=== PATIENT | male | born 1965 | race Caucasian/White ===

== ENCOUNTER 2016-12-22 20:49 | Emergency (ER) | payer OTHER ==
[2016-12-22 21:13] VITALS: BP 128/72
--- NOTE | 2016-12-22 22:25 | EDM.PDOC ---
ED HPI GENERAL MEDICAL PROBLEM - General Chief Complaint: Upper Extremity Injury/Pain Stated Complaint: R HAND INJURY Time Seen by Provider: 12/22/16 21:30 Source of Information: Reports: Patient History Limitations: Reports: No Limitations - History of Present Illness INITIAL COMMENTS - FREE TEXT/NARRATIVE: Ananda is an otherwise healthy 51 year old male who presents to the ED tonight with c/o right third and fourth digit swelling and pain after he was struck by trailer handle. Patient was winding up trailer for his boat when it came loose and spun back striking patient's right hand. Patient denies any other injuries. He did sustain two very small abrasions. Last DT was last year. Duration: Hour(s): (1) Right Hand Pain Score (Numeric/FACES): 5 - Related Data Allergies Allergy/AdvReac Type Severity Reaction Status Date / Time No Known Allergies Allergy Verified 01/23/15 14:47 Home Meds: Home Meds Naproxen Sodium [Aleve] 1 tab PO ASDIRECTED 01/23/15 [History] Past Medical History - Infectious Disease History Infectious Disease History: Reports: Chicken Pox - Past Surgical History Musculoskeletal Surgical History: Reports: Arthroscopic Knee, Shoulder Surgery Social & Family History - Tobacco Use Smoking Status *Q: Never Smoker - Caffeine Use Caffeine Use: Reports: None - Recreational Drug Use Recreational Drug Use: No Review of Systems - Review of Systems Review Of Systems: ROS reveals no pertinent complaints other than HPI. Trauma Exam - Physical Exam Exam: See Below Exam Limited By: No Limitations General Appearance: Reports: Alert, WD/WN, No Apparent Distress Head: Reports: Atraumatic Ears: Reports: Normal External Exam Respiratory Exam: Reports: No Respiratory Distress Cardiovascular: Reports: Normal Peripheral Pulses Extremities: Bony-Point Tenderness, Tenderness, Other (Tenderness and swelling with ecchymosis to right third and fourth digits. Ecchymosis starts at distal metacarpal region on plamer side and surrounds fourth digit. No open fracture. Concerns for fourth finger fx. No ligamentous instability, capillary refill and sensation are intact. ) Neurologic: Reports: No Motor/Sensory Deficits Skin: Reports: Ecchymosis Course - Vital Signs Text/Narrative:: Ananda is an otherwise healthy 51 year old male who presents to the ED today with c/o right 3rd and 4th finger pain/swelling after hand was struck by lever of trailer. Patient was winding up boat when lever came loose and struck right hand. Please refer to HPI and focused exam. Patient declined offer of pain medication. Very small abrasions to dorsal PIP on 3rd and 4th. Xray obtained to rule our fracture, multiple fractures to fourth digit to proximal phalange. I discussed findings with orthopedic Dr. Redding. It is likely that this injury will require pinning, but we lack the equipment to do this here. Patient is from [facility] and is here for the holiday weekend. Dr. Redding recommended an alumafoam splint with gail tape and follow up with orthopedics closer to home this next week (per primary care recommendation). I did have radiology formally read xray to have documentation for patient to take to primary as well as burn image on CD. I discussed findings of my exam, xray and orthopedic recommendations with patient. Splint was placed. I encouraged alternating ibuprofen/tylenol at home as well as RICE. spare splint was sent with patient. Reasons to return to the ED discussed with patient, he is agreeable to plan of care and questions were answered prior to discharge. Last Recorded V/S: Last Vital Signs Temp 36.3 C 12/22/16 21:12 Pulse 59 L 12/22/16 21:12 Resp 16 12/22/16 21:12 BP 128/72 12/22/16 21:12 Pulse Ox 95 12/22/16 21:12 - Orders/Labs/Meds Orders: Active Orders 24 hr Category Date Time Status Hand Comp Min 3V Rt [CR] Stat Exams 12/22/16 21:28 Taken Departure - Departure Time of Disposition: 23:00 Disposition: Home, Self-Care 01 Condition: good Clinical Impression: Finger fracture, right Qualifiers: Encounter type: initial encounter Finger: ring finger Fracture type: closed Phalanx: proximal Fracture alignment: displaced Qualified Code(s): S62.614A - Displaced fracture of proximal phalanx of right ring finger, initial encounter for closed fracture - Discharge Information Instructions: Finger Fracture, [id number] Referrals: PCP,None [Primary Care Provider] - Forms: ED Department Discharge Additional Instructions: Ananda, rest, elevate and ice your finger. Keep splint on. Discuss orthopedic referral with your primary care doctor. This should be evaluated this next week. You can alternate Tylenol and Ibuprofen for pain. It was nice meeting you....hopefully you can enjoy the rest of your holiday weekend. - My Orders Last 24 Hours: My Active Orders 12/22/16 21:28 Hand Comp Min 3V Rt [CR] Stat - Assessment/Plan Last 24 Hours: My Active Orders 12/22/16 21:28 Hand Comp Min 3V Rt [CR] Stat
== END 2016-12-22 22:36 | disposition home or self-care (01) ==
LOC: JP.ED 20:49
DX: S62.614A Displaced fracture of proximal phalanx of right ring finger, initial encounter for closed fracture (principal); W22.8XXA Striking against or struck by other objects, initial encounter
CPT/HCPCS: 73130-RT; 99284